=== PATIENT | female | born 1990 | race Asian ===

== ENCOUNTER 2019-08-01 01:10 | Emergency (ER) | payer OTHER ==
[2019-08-01] MEDS ORDERED: diphenhydrAMINE INJ 50 MG/ML VIAL IVP STA (01:26)
[2019-08-01] MEDS ORDERED: EPINEPHrine 1 MG/ML AMP IM STA (01:26)
[2019-08-01] MEDS ORDERED: predniSONE 20 MG TABLET PO STA (01:27)
[2019-08-01] MEDS ORDERED: EPINEPHrine 1 MG/ML AMP ONE (01:28)
[2019-08-01] MEDS ORDERED: diphenhydrAMINE INJ 50 MG/ML VIAL ONE (01:28)
[2019-08-01 02:33] LABS: BILIRUBIN,URINE NEGATIVE (NEGATIVE); GLUCOSE, URINE (UA) NEGATIVE (NEGATIVE); KETONES,URINE (UA) NEGATIVE (NEGATIVE); LEUKOCYTE ESTERASE, URINE TRACE (NEGATIVE); NITRITE,URINE NEGATIVE (NEGATIVE); OCCULT BLOOD,URINE TRACE-LYSE (NEGATIVE); PROTEIN,URINE NEGATIVE (NEGATIVE); UROBILINOGEN,URINE 0.2 (NORMAL) E.U./dL (NORMAL)
[2019-08-01 02:35] LABS: CLARITY,URINE CLEAR (CLEAR); HCG UR QUAL NEGATIVE
[2019-08-01 02:40] LABS: BACTERIA,URINE Few /HPF (None Seen); RBC,URINE 0-5 /HPF (0-5); SQUAMOUS EPITHELIAL CELL,UR FEW Squamous (<= Few)
--- NOTE | 2019-08-01 02:59 | ED Physician Documentation ---
History of Present Illness - Stated complaint Stated Complaint: MED REACTION - Chief complaint Chief Complaint: Allergic Rx - History obtained from History obtained from: Patient - History of Present Illness Timing: Today - Additonal information Additional information: 29-year-old female is been placed on some dicloxacillin for urinary tract infection and she has finished 9 days of this treatment. She is developed congestion and a sore throat and cough and she has taken some fluticasone nasally earlier in the day. She now has developed urticaria and a swollen upper lip. She has some soreness to the back of her throat that is persistent. She states that she has taken the dicloxacillin previously for mastitis. She was on her ninth day of treatment when this reaction occurred. She felt that the fluticasone nasal spray was responsible for this reaction. Review of Systems Constitutional: reports: Fatigue. denies: Fever Eyes: denies: Decreased vision Ears: denies: Ear pain Nose: reports: Rhinorrhea / runny nose, Congestion Throat: reports: Sore throat Cardiac: denies: Chest pain / pressure, Palpitations Respiratory: reports: Cough. denies: Dyspnea GI: denies: Vomiting Skin: reports: Rash PD PAST MEDICAL HISTORY - Present Medications Home Medications: Ambulatory Orders Medication Instructions Recorded Confirmed Azithromycin [Zithromax] 250 mg PO DAILY #6 tablet 08/01/19 Dicloxacillin [Dynapen] 500 mg PO TID 08/01/19 08/01/19 predniSONE [Prednisone] 40 mg PO DAILY #10 tablet 08/01/19 - Allergies Allergies/Adverse Reactions: Allergies Allergy/AdvReac Type Severity Reaction Status Date / Time No Known Drug Allergies Allergy Verified 08/01/19 01:28 - Social History Does the pt smoke?: No Smoking Status: Never smoker PD ED PE NORMAL - Vitals Vital signs reviewed: Yes (hypertensive ) - General General: Alert and oriented X 3, No acute distress, Well developed/nourished - HEENT HEENT: Atraumatic, PERRL, EOMI, Other (minimal inflamation in the right TM the left is inflamed in the attic and there is rounding of the umbo. There is marked swelling to the upper lip like angio-edema. There is swelling to the posterior pharynx. ) - Neck Neck: Supple, no meningeal sign, No bony TTP - Cardiac Cardiac: RRR, No murmur - Respiratory Respiratory: No respiratory distress, Clear bilaterally - Abdomen Abdomen: Soft, Non tender - Back Back: No CVA TTP, No spinal TTP - Derm Derm: Normal color, Warm and dry, Other (There are urticaria over the back chest and face. 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, No motor deficit, No sensory deficit, Normal speech Eye Opening: Spontaneous Motor: Obeys Commands Verbal: Oriented GCS Score: 15 - Psych Psych: Normal mood, Normal affect Results - Vitals Vitals: Vital Signs - 24 hr 08/01/19 08/01/19 08/01/19 01:10 01:33 01:41 Temperature 36.6 C Heart Rate 96 80 78 Respiratory 15 15 Rate Blood Pressure 119/90 H 125/85 H O2 Saturation 100 100 100 08/01/19 08/01/19 08/01/19 01:54 02:11 02:30 Temperature Heart Rate 89 86 91 Respiratory 15 15 15 Rate Blood Pressure 125/85 H 107/58 L 105/86 H O2 Saturation 99 100 98 Oxygen O2 Source Room air - Labs Labs: Laboratory Tests 08/01/19 08/01/19 02:25 02:25 Urine Color YELLOW Urine Clarity CLEAR Urine pH 7.0 Ur Specific [place] <=1.005 <1.005 Urine Protein NEGATIVE Urine Glucose (UA) NEGATIVE Urine Ketones NEGATIVE Urine Occult Blood TRACE-LYSE Urine Nitrite NEGATIVE Urine Bilirubin NEGATIVE Urine Urobilinogen 0.2 (NORMAL) Ur Leukocyte Esterase TRACE H Urine RBC 0-5 Urine WBC 4-5 Ur Squamous Epith Cells FEW Squamous Urine Bacteria Few Ur Microscopic Review INDICATED Urine Culture Comments INDICATED Urine HCG, Qual NEGATIVE PD MEDICAL DECISION MAKING - ED course Complexity details: re-evaluated patient, considered differential, d/w patient ED course: 29-year-old female on some dicloxacillin for urinary tract infection has no urinary tract symptoms any longer and her urine appears clear this evening. She does have URI symptoms and on exam has left otitis. She used some fluticasone nasal spray earlier today and she is developed urticaria and swollen upper lip. I suspect her urticaria and swollen lip are related to the dicloxacillin rather than the fluticasone. She is administered IM epinephrine and IV Benadryl as well as p.o. prednisone. She has marked improvement in her symptoms and I have encouraged the patient to use some Benadryl every 6 hours for the next 2 days and to take some prednisone for 5 days. She does have an incidental otitis media and I have provided a prescription for azithromycin and [id number] instructions. I have indicated the patient that she may have resolution of her symptoms without the medication and the instructions detail reasons she should start medication. Departure - Departure Disposition: 01 Home, Self Care Clinical Impression: Allergic urticaria [id number] Qualifiers: Encounter type: initial encounter Qualified Code(s): T78.3XXA - Angioneurotic edema, initial encounter Otitis media Qualifiers: Otitis media type: suppurative Chronicity: acute Laterality: bilateral Recurrence: non-recurrent Spontaneous tympanic membrane rupture: without spontaneous rupture Qualified Code(s): H66.003 - Acute suppurative otitis media without spontaneous rupture of ear drum, bilateral Condition: Stable Instructions: ED Urticaria, ED Ear Infec Wait See Abx Tx Ch, ED Drug React Allergic Follow-Up: [facility] [Provider Group] Prescriptions: Azithromycin [Zithromax] 250 mg PO DAILY #6 tablet predniSONE [Prednisone] 40 mg PO DAILY #10 tablet Comments: Today it looks like you have had an allergic reaction to dicloxacillin. Do not take this medication in the future. It is closely related to penicillin. The recommendation is to take the prednisone 40 mg daily for 5 days and take Benadryl or a nonsedating antihistamine for the next 2 days.
[2019-08-01 03:12] VITALS: BP 97/60
== END 2019-08-01 03:20 | disposition home or self-care (01) ==
LOC: ED 01:10
DX: L50.0 Allergic urticaria (principal); T78.3XXA Angioneurotic edema, initial encounter; T36.0X5A Adverse effect of penicillins, initial encounter; H66.003 Acute suppurative otitis media without spontaneous rupture of ear drum, bilateral; Z87.440 Personal history of urinary (tract) infections
CPT/HCPCS: 36415; 81001; 81025; 87086; 96372; 96374; 99283; J1200; J7512; 81003

== ENCOUNTER 2019-08-02 01:09 | Emergency (ER) | payer OTHER ==
[2019-08-02] MEDS ORDERED: EPINEPHrine 1 MG/ML AMP ONE (01:13)
--- NOTE | 2019-08-02 01:14 | ED Physician Documentation ---
History of Present Illness - Stated complaint Stated Complaint: SWOLLEN BODY - History obtained from History obtained from: Patient - History of Present Illness Timing: Yesterday Pain level max: 0 Pain level now: 0 Improved by: improved with medications given in ED (epinephrine, steroids, benadryl) Worsened by: no apparent inciting/exacerbating factors - Additonal information Additional information: T+R last night for mild pruritic rash, lip swelling. She had significant improvement with IM epinephrine, IV benadryl, and PO prednisone. She was prescribed prednisone and has also been taking 25mg benadryl Q4 PRN. She returns to ED due to worsening of pruritic rash, which is markedly worse than when she was here last night, although patient does not feel her lips are more swollen than they had been . She has not had allergic reactions in the past (prior to yesterday). She recently stopped taking dicloxacillin after 9 days due to the rash and lip swelling (although this did not develop until the nine days into taking the antibiotic). She also had used fluticasone earlier in the day yesterday. She had flu shot 2-3 days before the rash/lip swelling developed. Review of Systems Constitutional: denies: Fever, Chills, Myalgias, Sweats Cardiac: denies: Chest pain / pressure Respiratory: denies: Dyspnea, Cough, Wheezing GI: reports: Reviewed and negative Skin: reports: Rash PD PAST MEDICAL HISTORY - Past Medical History Past Medical History: No - Present Medications Home Medications: Ambulatory Orders Medication Instructions Recorded Confirmed Azithromycin [Zithromax] 250 mg PO DAILY #6 tablet 08/01/19 Dicloxacillin [Dynapen] 500 mg PO TID 08/01/19 08/01/19 predniSONE [Prednisone] 40 mg PO DAILY #10 tablet 08/01/19 EPINEPHrine [Epinephrine] 0.3 mg IJ ONCE PRN #1 auto.injct 08/02/19 Famotidine [Pepcid] 20 mg PO BID #14 tablet 08/02/19 predniSONE [Deltasone] 10 mg PO [id number] #42 tab 08/02/19 - Allergies Allergies/Adverse Reactions: Allergies Allergy/AdvReac Type Severity Reaction Status Date / Time No Known Drug Allergies Allergy Verified 08/02/19 01:24 - Living Situation Living Arrangement: reports: At home - Social History Does the pt smoke?: No Smoking Status: Never smoker PD ED PE NORMAL - Vitals Vital signs reviewed: Yes - General General: Alert and oriented X 3, No acute distress, Well developed/nourished - HEENT HEENT: PERRL, EOMI, Moist mucous membranes, Pharynx benign (no oropharyngeal edema; airway (posterior oropharynx) is widely patent) - Cardiac Cardiac: RRR, No murmur - Respiratory Respiratory: No respiratory distress, Clear bilaterally - Extremities Extremities: No edema PD ED PE EXPANDED - Derm Derm: Urticaria (diffuse urticaria with large areas of confluence on chest, back, chest, bilateral abdominal flanks, all four extremities. mild urticaria and swelling of face) Results - Vitals Vitals: Vital Signs - 24 hr 08/02/19 08/02/19 08/02/19 01:18 01:34 02:02 Temperature 36.8 C Heart Rate 103 H 95 101 H Respiratory 17 16 16 Rate Blood Pressure 136/92 H 114/70 116/66 O2 Saturation 98 97 98 08/02/19 08/02/19 08/02/19 02:30 03:09 04:20 Temperature Heart Rate 97 95 79 Respiratory 17 16 16 Rate Blood Pressure 97/55 L 99/57 L 106/98 H O2 Saturation 95 98 98 Oxygen O2 Source Room air PD MEDICAL DECISION MAKING - ED course Complexity details: reviewed old records, re-evaluated patient, considered differential, d/w patient ED course: given IM epinephrine, IV solumedrol, and IV famotidine. On reevaluation, there was dramatic improvement; the urticaria is now, flat, faint, and with less coalescence. It has nearly resolved on her back (where it was the most pronounced on my initial exam), and has nearly resolved on face and chest. There is residual but milder, flat urticaria on abdominal flanks and RUE Departure - Departure Disposition: 01 Home, Self Care Clinical Impression: Allergic urticaria Condition: Good Instructions: ED Urticaria Prescriptions: EPINEPHrine [Epinephrine] 0.3 mg IJ ONCE PRN #1 auto.injct PRN Reason: Anaphylaxis Famotidine [Pepcid] 20 mg PO BID #14 tablet predniSONE [Deltasone] 10 mg PO [id number] #42 tab Comments: You can take 2 tablets (50mg) of the benadryl every 6 hours as needed for rash. Discharge Date/Time: 08/02/19 04:24
[2019-08-02] MEDS ORDERED: EPINEPHrine 1 MG/ML AMP IM STA (01:17)
[2019-08-02] MEDS ORDERED: methylPREDNISolone SUCCINATE 125 MG/2 ML VIAL IVP STA (01:47)
[2019-08-02] MEDS ORDERED: FAMOTIDINE 20 MG/2 ML VIAL IVP STA (01:47)
[2019-08-02 04:20] VITALS: BP 106/98
== END 2019-08-02 04:24 | disposition home or self-care (01) ==
LOC: ED 01:09
DX: L50.0 Allergic urticaria (principal)
CPT/HCPCS: 36415; 96372; 96374; 99283

== ENCOUNTER 2020-03-31 10:30 | Outpatient (CLI) | payer OTHER ==
--- NOTE | 2020-03-31 11:34 | XRAY Report ---
Reason: BACK PAIN Procedure Date: 03/31/2020 Accession Number: [id number] / [id number] Procedure: WCP - Lumbar Spine 2 View CPT Code: Final Report FULL RESULT: PROCEDURE: Lumbar Spine 2 View INDICATIONS: BACK PAIN TECHNIQUE: 2 views of the lumbar spine were acquired. COMPARISON: None. FINDINGS: Bones: 5 [id number] vertebrae are present. Very mild S-shaped scoliosis of the thoracolumbar spine with asymmetric disc height loss on the right at the L1-2 level. AP alignment is normal. There is minor anterior wedge deformity of the L1 vertebral body without evidence of acute compression fractures. No suspicious bony lesions. Soft tissues: Overlying bowel gas pattern is normal. No suspicious soft tissue calcifications. IMPRESSION: 1. Minor asymmetric right-sided disc height loss at the L1-2 level at the site of pain. There may be disc degeneration. Recommend MRI for further characterization. 2. Subtle wedge deformity of the L1 vertebral body may be evidence of remote fracture or physiologic morphology. MR imaging would be helpful in assessing for any acute osseous edema. Reviewed by: Prabha Gonzalez MD on 03/31/2020 11:33 AM PDT Approved by: Prabha Gonzalez MD on 03/31/2020 11:33 AM PDT Station ID: [id number]
== END 2020-03-31 23:59 | disposition home or self-care (01) ==
LOC: DI.WCP 10:30
PROVIDERS: ATTEND Family Medicine
DX: M54.9 Dorsalgia, unspecified (principal)
CPT/HCPCS: 72100